=== PATIENT | female | born 1950 | race Caucasian/White ===

== ENCOUNTER 2018-09-11 06:44 | Day surgery (SDC) | payer MEDICARE, OTHER ==
[2018-09-11] MEDS ORDERED: LIDOCAINE 1%-EPI 1:100,000 20 ML VIAL ONE (09:08)
[2018-09-11] MEDS ORDERED: BUPIVACAINE PF 0.5% 30 ML VIAL ONE (09:08)
[2018-09-11] MEDS ORDERED: PROPOFOL 200 MG/20 ML BOTTLE IV ONE (10:25)
[2018-09-11] MEDS ORDERED: VECURONIUM BROMIDE 10 MG VIAL IV ONE (10:25)
[2018-09-11] MEDS ORDERED: SEVOFLURANE 250 ML BOTTLE IH ONE (10:25)
[2018-09-11] MEDS ORDERED: SUCCINYLCHOLINE CHLORIDE 200 MG/10 ML VIAL IV ONE (10:25)
[2018-09-11] MEDS ORDERED: LIDOCAINE-MPF 2% 5 ML VIAL MC ONE (10:25)
[2018-09-11] MEDS ORDERED: IRR STERIL WATER FOR IRR 1000 ML BOTTLE IR ONE (10:25)
[2018-09-11] MEDS ORDERED: ACETAMINOPHEN 325 MG TABLET PO ONE (11:00)
[2018-09-11] MEDS ORDERED: GABAPENTIN 300 MG CAPSULE PO ONE (11:00)
[2018-09-11] MEDS ORDERED: IBUPROFEN 800 MG TABLET PO ONE (11:00)
[2018-09-11] MEDS ORDERED: ACETAMINOPHEN 325 MG TABLET ONE (11:05)
== END 2018-09-11 12:25 | disposition home or self-care (01) ==
LOC: DS 06:44
PROVIDERS: ATTEND Surgery
DX: K60.1 Chronic anal fissure (principal); K62.5 Hemorrhage of anus and rectum; K63.89 Other specified diseases of intestine; K62.4 Stenosis of anus and rectum; I10 Essential (primary) hypertension; K64.8 Other hemorrhoids; E78.00 Pure hypercholesterolemia, unspecified; K64.4 Residual hemorrhoidal skin tags; Z82.49 Family history of ischemic heart disease and other diseases of the circulatory system; Z80.3 Family history of malignant neoplasm of breast; Z83.3 Family history of diabetes mellitus; Z98.890 Other specified postprocedural states
CPT/HCPCS: 45378; J0330; J3490 ×4; J7120; A4217; A4663; J7030